=== PATIENT | male | born 1995 | race Two or more races ===

== ENCOUNTER 2017-05-02 13:11 | Emergency (ER) | payer BC ==
[~2017-05-02] VITALS: Ht 172.7 cm; Wt 87.0 kg
[~2017-05-02 13:11] MED LIST: AMITRIPTYLINE H25 M1 PO; CYCLOBENZAPRINE10 M1 PO; DEPAKOTE ER250 M1 PO; FLOMAX0.4 M1 PO; LEVSIN0.125 M1 PO; MAGNESIUM500 MG PO; MECLIZINE HCL25 M3 PO; MELATONIN3 M4 PO; MELOXICAM7.5 M1 PO; MOBIC7.5 M2 PO; NORCO 5-325 TA1 EACH PO; OMEPRAZOLE20 M4 PO; PERCOCET 5-3251 EACH PO; PRILOSEC OTC20 M1 PO; TOPIRAMATE MC; ZOFRAN4 M2 PO; ZOLOFT25 M1 PO
[2017-05-02] MEDS ORDERED: NO HOME MEDICATION XX (13:33)
[2017-05-02 13:53] LABS: BASO % 0.2 % (0-2); EOS % 1.2 % (0-7); EOSINOPHIL ABSOLUTE COUNT 0.1 tho/cmm (0.0-0.7); HCT-HEMATOCRIT 45.4 % (36.0-53.5); HGB-HEMOGLOBIN 16.3 gm/dl (13.5-17.0); IMMATURE GRANULOCYTES ABSOLUTE 0.02 tho/cmm (0-0.03); IMMATURE GRANULOCYTES PERCENT 0.2 % (0-0.3); LYMPH % 27.6 % (20-45); LYMPH ABSOLUTE COUNT 2.7 tho/cmm (0.8-4.5); MCH (MEAN CORPUSCULAR HGB) 30.9 pg (28.0-32.0); MCHC MEAN CORPUSCULAR HGB CONC 35.9 % (32.0-36.0); MEAN PLATELET VOLUME 11.7 cmc (9.4-12.4); MONO % 9.6 % (0-12); MONOCYTE ABSOLUTE COUNT 0.9 tho/cmm (0.0-1.2); NEUTROPHIL ABSOLUTE COUNT 5.9 tho/cmm (1.6-8.0); NEUTROPHIL-AUTOMATED 5.9 tho/cmm (1.6-8.0); NEUTROPHILS % 61.2 % (40-80); PLATELET COUNT 229 tho/cmm (150-450); RED BLOOD COUNT 5.28 mil/cmm (4.40-5.70); RED CELL DISTRIBUTION WIDTH 12.5 % (12.4-16.4); WHITE BLOOD COUNT 9.7 tho/cmm (4.0-10.0)
[2017-05-02 14:02] LABS: URINE APPEARANCE CLEAR; URINE BILIRUBIN NEGATIVE (NEG); URINE BLOOD NEGATIVE (NEG); URINE COLOR YELLOW; URINE GLUCOSE (UA) NEGATIVE (NEG); URINE KETONE NEGATIVE (NEG); URINE LEUKOCYTE ESTERASE NEGATIVE (NEG); URINE NITRITE NEGATIVE (NEG); URINE PROTEIN NEGATIVE (NEG)
[2017-05-02 14:09] LABS: ANION GAP 8 mmol/L (0-20); BLOOD UREA NITROGEN 13 mg/dl (6-24); CALCIUM 9.3 mg/dl (8.5-10.5); CARBON DIOXIDE-VENOUS 28 mmol/L (22-32); CHLORIDE 105 mmol/l (96-110); CREATININE 1.56 mg/dl (0.60-1.30); GLUCOSE 87 mg/dL (70-110); LIPASE 111 U/L (73-393); SODIUM 137 mmol/L (135-145); eGFR VALUE FOR BLACK 72 mL/Min
[2017-05-02 14:11] LABS: POTASSIUM 4.1 mmol/L (3.7-5.1)
[2017-05-02 15:19] LABS: BILIRUBIN,DIRECT 0.2 mg/dl (0.0-0.3); BILIRUBIN,INDIRECT 0.4 mg/dL (0.0-1.0); BILIRUBIN,TOTAL 0.6 mg/dl (0.0-1.5)
[2017-05-02] MEDS ORDERED: IBUPROFEN600 M1 PO (15:52)
[2017-05-02] MEDS ORDERED: ZOFRAN4 M2 PO (15:52)
== END 2017-05-02 16:00 ==
LOC: EDMED 13:11
PROVIDERS: Emergency Medicine
DX: R11.2 Nausea with vomiting, unspecified (principal); R10.31 Right lower quadrant pain; Z87.891 Personal history of nicotine dependence
CPT/HCPCS: J1885; J2405